=== PATIENT | male | born 1985 | race Caucasian/White ===

== ENCOUNTER → 2017-08-08 | Outpatient (CLI) | payer BC ==
[2017-08-08 16:57] LABS: HCT 44.8 % (39.0-53.0); HGB 14.8 gm/dL (13.0-17.5); MCH 28.6 pg (25.0-35.0); MCV 86.5 fL (80.0-100.0); Mean Platelet Volume 6.4; Platelet Count 302 k/uL (150-450); RBC 5.18 m/uL (4.30-5.90); RDW 12.9 % (11.5-15.5); WBC 9.4 k/uL (3.8-10.6)
[2017-08-08 17:08] LABS: ALT 76 U/L (21-72); AST 50 U/L (17-59); Albumin 4.5 g/dL (3.5-5.0); Alkaline Phosphatase 101 U/L (38-126); Anion Gap 13 mmol/L; Blood Urea Nitrogen 15 mg/dL (9-20); Calcium 9.5 mg/dL (8.4-10.2); Carbon Dioxide 28 mmol/L (22-30); Chloride 103 mmol/L (98-107); Glucose 87 mg/dL (74-99); Potassium 4.2 mmol/L (3.5-5.1); Sodium 144 mmol/L (137-145); Total Protein 7.4 g/dL (6.3-8.2)
== END | disposition home or self-care (01) ==
LOC: LABPAT 15:58
PROVIDERS: ATTEND Surgery Plastic and Reconstructive Surgery
DX: Z01.818 Encounter for other preprocedural examination (principal); K57.30 Diverticulosis of large intestine without perforation or abscess without bleeding
CPT/HCPCS: 36415; 80053; 85027; 93005

== ENCOUNTER 2017-08-12 05:25 | Inpatient (IN) | payer BC ==
[2017-08-03 08:56] VITALS: BMI 33.9
[~2017-08-12 05:25] MED LIST: HEPARIN SODIUM,PORCINE 5,000 UNIT/ML 1 ML VIAL SQ ONE; ceFAZolin IN SWFI 2 GM/20 ML SYRINGE IVP ONE; metroNIDAZOLE-NS PMX 500 MG in SALINE 1 100ML.BAG IVPB ONE
[2017-08-12] MEDS ORDERED: HYDROmorphone 0.5 MG/0.5 ML SYRINGE IVP PRN ×2 (05:36→13:23)
[2017-08-12] MEDS ORDERED: Antibiotics per Pharmacy 1 EACH MISC MISCELLANE PRN (05:36)
[2017-08-12] MEDS ORDERED: ACETAMINOPHEN TAB 500 MG TAB PO ONE (05:36)
[2017-08-12] MEDS ORDERED: ALVIMOPAN 12 MG CAPSULE PO ONE (05:36)
[2017-08-12] MEDS ORDERED: DEXAMETHASONE SOD PHOSPHATE 10 MG/ML 1 ML VIAL IV ONE (05:36)
[2017-08-12] MEDS ORDERED: MIDAZOLAM 2 MG/2 ML VIAL IV PRN (05:36)
[2017-08-12] MEDS ORDERED: ONDANSETRON 4 MG/2 ML VIAL IVP ONE (05:36)
[2017-08-12] MEDS: LACTATED RINGERS 1,000 ML IV SCH (06:10)
[2017-08-12] MEDS ORDERED: MIDAZOLAM 2 MG/2 ML VIAL IVP ONE (06:50)
[2017-08-12] MEDS ORDERED: fentaNYL (PF) 50 MCG/ML 2 ML AMP IVP ONE ×2 (06:55→07:03)
--- NOTE | 2017-08-12 07:04 | P.GSHP ---
History of Present Illness H&P Date: 08/12/17 CHIEF COMPLAINT: Diverticulitis. HISTORY OF PRESENT ILLNESS: Yosef Patel is a status post colonoscopy. He had a recent diverticulitis attack barely 3 months ago on April of 2017. He just completed his colonoscopy, actually demonstrated active and acute diverticulitis. He had been started on ciprofloxacin including Flagyl on the interim. He has a strong family history of diverticulitis in his grandfather and father, who had a colon resection. He now presents for further evaluation and management. In the past 3 months, he has changed his diet, including high fiber diet with increased in vegetables and fruits. PAST MEDICAL HISTORY: Please see list. PAST SURGICAL HISTORY: Please see list. MEDICATIONS: Please see list. ALLERGIES: Please see list. SOCIAL HISTORY: No illicit drug use FAMILY HISTORY: No reports of Crohn disease or ulcerative colitis. REVIEW OF ORGAN SYSTEMS: Additionally reports: GI: History of diverticulitis. History of colon polyp. CONSTITUTIONAL: No fevers or chills. HEENT: Denies any trouble with vision, hearing or nosebleeds. No difficulty swallowing. LYMPHATIC: The patient denies any lumps and bumps around the neck. ENDOCRINE: Denies any thyroid disorders. Denies any blood sugar glucose intolerance. RESPIRATORY: Denies pneumonia. Denies any troubles with breathing or dyspnea on exertion. CARDIOVASCULAR: Denies any chest pain, palpitations, or recent heart attacks. GENITOURINARY: Denies any blood in urine or increased urinary frequency. MUSCULOSKELETAL: Denies any back pain, stiffness or joint arthritis. NEUROLOGIC: Denies any numbness or tingling along the distal extremities. No seizure disorders or headaches. PSYCHIATRIC: Denies any depression or suicidal ideation. HEMATOLOGIC: Denies any abnormal bleeding or bruising. BREASTS: Denies any breast lumps, pain or nipple discharge. SKIN: No current skin cancer. No rash. PHYSICAL EXAM: Patient is a 32-year-old male. GENERAL: Well developed and in no acute distress. Pleasant. HEENT: No sclera icterus. Extraocular movements grossly intact. Moist buccal mucosa. Head is atraumatic, normocephalic. Hears conversational speech. No nasal drainage. NECK: Supple without lymphadenopathy. No JV distention. CHEST: Non-labored respirations and equal bilateral excursions. CARDIOVASCULAR: Regular rate and rhythm. Palpable 2+ radial pulses. ABDOMEN: Soft. Non-tender. Nondistended. MUSCULOSKELETAL: No clubbing, cyanosis or edema. NEUROLOGIC: No focal or lateralizing signs. PSYCH: Appropriate affect. Alert and oriented to person, place and time. SKIN: Well perfused. Good skin turgor. STUDIES: Colonoscopy results were identified and reviewed, and were consistent with active diverticulitis involving the sigmoid colon between 20-30 cm. Benign colon polyp was extract, however pathology is still pending. ASSESSMENT: 1. Sigmoid diverticulitis. 2. Family history of diverticulitis. 3. Obesity. PLAN: 1. I have gone over options, including medications in the interim with antibiotics. Alternatively, surgical interventions were described. A sigmoid colon resection was reviewed. 2. Laparoscopic verses robotic and open surgery was reviewed. Benefits of each technique were also described including risks. 3. Given the complexity of the surgery, surgery at a tertiary care center was described. He will need a EKG including blood work panel preoperatively. 4. DVT prophylaxis. 5. Antibiotics prophylaxis. 6. Inpatient hospitalization was anticipated for 2 nights. Past Medical History Additional Past Medical History / Comment(s): diverticulitis, History of Any Multi-Drug Resistant Organisms: None Reported Additional Past Surgical History / Comment(s): oral surgery, colonoscopy Past Anesthesia/Blood Transfusion Reactions: No Reported Reaction Smoking Status: Never smoker - Past Family History Mother Family Medical History: No Reported History Medications and Allergies Home Medications Medication Instructions Recorded Confirmed Type No Known Home Medications [No 08/03/17 08/03/17 History Known Home Medications] Allergies Allergy/AdvReac Type Severity Reaction Status Date / Time Sulfa (Sulfonamide Allergy Unknown Verified 08/03/17 08:50 Antibiotics) Childhood Surgical - Exam Vital Signs Temp Pulse Resp BP Pulse Ox 98.0 F 63 18 117/75 99 08/12/17 05:49 08/12/17 05:49 08/12/17 05:49 08/12/17 05:49 08/12/17 05:49
[2017-08-12] MEDS ORDERED: NALOXONE 0.4 MG/ML 1 ML VIAL IV PRN (07:06)
[2017-08-12] MEDS ORDERED: ROCURONIUM BROMIDE 10 MG/ML 10 ML VIAL IV ONE (07:09)
[2017-08-12] MEDS ORDERED: MIDAZOLAM 2 MG/2 ML VIAL ONE (07:09)
[2017-08-12] MEDS ORDERED: PROPOFOL 10 MG/ML 20 ML VIAL IV ONE (07:09)
[2017-08-12] MEDS ORDERED: LIDOCAINE 1% INJ 10MG/ML (20 ML MDV) ONE (07:09)
[2017-08-12] MEDS ORDERED: HYDROmorphone (PF) 1 MG/ML ONE (07:09)
[2017-08-12] MEDS ORDERED: NALOXONE 0.4 MG/ML 1 ML VIAL ONE (07:09)
[2017-08-12] MEDS ORDERED: SUCCINYLCHOLINE CHLORIDE 100 MG/5 ML SYR IV ONE (07:09)
[2017-08-12] MEDS ORDERED: fentaNYL (PF) 50 MCG/ML 2 ML AMP ONE (07:09)
[2017-08-12] MEDS ORDERED: GLYCOPYRROLATE 0.2 MG/ML 2 ML VIAL ONE (07:09)
[2017-08-12] MEDS ORDERED: NEOSTIGMINE 1 MG/ML 10 ML VIAL ONE (07:09)
[2017-08-12] MEDS ORDERED: LACTATED RINGERS 1,000 ML IV ONE ×5 (07:15→11:33)
[2017-08-12] MEDS ORDERED: BUPIVACAINE (PF) 0.25% 30 ML VIAL SQ ONE ×2 (08:09)
[2017-08-12] MEDS: BUPIVACAINE (PF) 0.5% 31.3 ML, HYDROMORPHONE (PF) 5 MG in SODIUM CHLORIDE 0.9% 218 ML EPIDURAL PRN ×2 (13:04→14:14)
[2017-08-12] MEDS ORDERED: ONDANSETRON 4 MG/2 ML VIAL IVP PRN (13:23)
[2017-08-12] MEDS: METOCLOPRAMIDE 5 MG/ML 2 ML VIAL IVP SCH (17:08)
[2017-08-12] MEDS: D5-0.45% NACL WITH KCL 20MEQ/L 1,000 ML IV SCH (20:26)
[2017-08-13] MEDS: D5-0.45% NACL WITH KCL 20MEQ/L 1,000 ML IV SCH ×2 (00:37→05:36)
[2017-08-13] MEDS: METOCLOPRAMIDE 5 MG/ML 2 ML VIAL IVP SCH ×4 (00:38→20:13)
[2017-08-13] MEDS: ALVIMOPAN 12 MG CAPSULE PO SCH ×2 (09:25→20:11)
--- NOTE | 2017-08-13 11:17 | P.PN ---
Progress Note - Text Progress Note Date: 08/12/17 Patient seen and evaluated. His pain is well controlled. No complaints. Care plan reviewed including potential removal of epidural in the morning and discontinue Estevez in the morning. Continue with antibiotics per protocol. Disposition pending flatus.
[2017-08-13 12:24] LABS: Basophils % (A) 0 %; Eosinophils # (A) 0.1 k/uL (0-0.7); Eosinophils % (A) 0 %; HCT 42.3 % (39.0-53.0); HGB 14.3 gm/dL (13.0-17.5); Lymphocytes # (A) 2.5 k/uL (1.0-4.8); Lymphocytes % (A) 20 %; MCH 28.8 pg (25.0-35.0); MCHC 33.8 g/dL (31.0-37.0); Mean Platelet Volume 6.4; Monocytes # (A) 0.7 k/uL (0-1.0); Monocytes % (A) 5 %; Neutrophils # (A) 9.3 k/uL (1.3-7.7); Neutrophils % (A) 73 %; Platelet Count 269 k/uL (150-450); RBC 4.97 m/uL (4.30-5.90); RDW 12.7 % (11.5-15.5); WBC 12.7 k/uL (3.8-10.6)
[2017-08-13 12:32] LABS: ALT 51 U/L (21-72); AST 81 U/L (17-59); Albumin 3.6 g/dL (3.5-5.0); Alkaline Phosphatase 77 U/L (38-126); Anion Gap 10 mmol/L; Blood Urea Nitrogen 12 mg/dL (9-20); Carbon Dioxide 30 mmol/L (22-30); Chloride 100 mmol/L (98-107); Glucose 119 mg/dL (74-99); Phosphorus 2.3 mg/dL (2.5-4.5); Potassium 3.5 mmol/L (3.5-5.1); Sodium 140 mmol/L (137-145); Total Bilirubin 1.8 mg/dL (0.2-1.3); Total Protein 6.2 g/dL (6.3-8.2)
[2017-08-13] MEDS ORDERED: SODIUM CHLORIDE 0.9% 2,000 ML IV ONE (14:31)
[2017-08-13] MEDS ORDERED: HYDROcodone/APAP 5-325MG 1 EACH TAB PO PRN (15:03)
--- NOTE | 2017-08-13 15:32 | P.PN ---
Progress Note - Text 08/13 9360 32 ye old male s/p robotic assisted lap sigmoid colectomy. pt has a vas of 1 at rest,no motor or sensory deficit. epidural d/sheryl .
[2017-08-13] MEDS: LEVOFLOXACIN 500MG-D5W PMX 500 MG in DEXTROSE/WATER 1 100ML.BAG IVPB SCH (17:22)
[2017-08-13] MEDS ORDERED: ACETAMINOPHEN IV (For NPO) 1,000 MG in EMPTY BAG 1 BAG IVPB PRN (18:32)
[2017-08-13] MEDS: MAGNESIUM SULFATE-D5W PMX 1 GM in DEXTROSE/WATER 1 100ML.BAG IVPB SCH ×2 (18:39→20:17)
[2017-08-13] MEDS: METOPROLOL TARTRATE 25 MG TAB PO SCH (20:11)
[2017-08-13] MEDS: SODIUM PHOSPHATE 10 MMOL in SODIUM CHLORIDE 0.9% 250 ML IVPB SCH ×2 (21:22→23:34)
[2017-08-14] MEDS: METOCLOPRAMIDE 5 MG/ML 2 ML VIAL IVP SCH ×2 (01:15→06:13)
[2017-08-14] MEDS: SODIUM PHOSPHATE 10 MMOL in SODIUM CHLORIDE 0.9% 250 ML IVPB SCH (01:40)
[2017-08-14] MEDS: D5-0.45% NACL WITH KCL 20MEQ/L 1,000 ML IV SCH ×3 (01:42→06:12)
[2017-08-14] MEDS: ACETAMINOPHEN IV (For NPO) 1,000 MG in EMPTY BAG 1 BAG IVPB SCH ×2 (01:43→06:11)
[2017-08-14] MEDS: LACTATED RINGERS 1,000 ML IV SCH (03:59)
[2017-08-14 07:12] LABS: Basophils # (A) 0.1 k/uL (0-0.2); Basophils % (A) 1 %; Eosinophils # (A) 0.1 k/uL (0-0.7); Eosinophils % (A) 1 %; HCT 39.6 % (39.0-53.0); HGB 13.4 gm/dL (13.0-17.5); Lymphocytes # (A) 2.2 k/uL (1.0-4.8); Lymphocytes % (A) 22 %; MCH 28.6 pg (25.0-35.0); MCHC 33.9 g/dL (31.0-37.0); MCV 84.4 fL (80.0-100.0); Mean Platelet Volume 6.5; Monocytes # (A) 0.7 k/uL (0-1.0); Monocytes % (A) 7 %; Neutrophils # (A) 6.9 k/uL (1.3-7.7); Neutrophils % (A) 68 %; Platelet Count 244 k/uL (150-450); RDW 12.5 % (11.5-15.5); WBC 10.1 k/uL (3.8-10.6)
[2017-08-14 07:25] LABS: ALT 47 U/L (21-72); AST 72 U/L (17-59); Albumin 3.4 g/dL (3.5-5.0); Alkaline Phosphatase 76 U/L (38-126); Anion Gap 10 mmol/L; Blood Urea Nitrogen 8 mg/dL (9-20); Calcium 8.8 mg/dL (8.4-10.2); Carbon Dioxide 28 mmol/L (22-30); Chloride 102 mmol/L (98-107); Glucose 108 mg/dL (74-99); Phosphorus 2.9 mg/dL (2.5-4.5); Potassium 3.6 mmol/L (3.5-5.1); Sodium 140 mmol/L (137-145); Total Bilirubin 2.3 mg/dL (0.2-1.3); Total Protein 5.9 g/dL (6.3-8.2)
[2017-08-14] MEDS ORDERED: METOPROLOL TARTRATE 25 MG TAB PO SCH (09:00)
[2017-08-14] MEDS: LEVOFLOXACIN 500MG-D5W PMX 500 MG in DEXTROSE/WATER 1 100ML.BAG IVPB SCH (09:03)
[2017-08-14] MEDS: METOPROLOL TARTRATE 25 MG TAB PO SCH (09:03)
[2017-08-14] MEDS: ALVIMOPAN 12 MG CAPSULE PO SCH (09:03)
[2017-08-14 10:06] VITALS: BP 125/81; PULSE 82; RESP 16; TEMP 98.3
[2017-08-14 12:35] LABS: Bilirubin, Delta 0.4 mg/dL (0.0-0.2); Bilirubin,Unconjugated 1.7 mg/dL (0.0-1.1); Total Bilirubin 2.1 mg/dL (0.2-1.3)
--- NOTE | 2017-08-14 12:58 | P.PN ---
Subjective Progress Note Date: 08/14/17 Patient is a 32-year-old gentleman status post robotic-assisted sigmoid resection. He is POD#1 "I feel great.". Pain is well-controlled. He is passing flatus and had bowel movements without blood. His is at bedside. Objective - Vital Signs Vital signs: Vital Signs Temp 98.3 F 08/14/17 07:00 Pulse 82 08/14/17 07:00 Resp 16 08/14/17 07:00 BP 125/81 08/14/17 07:00 Pulse Ox 95 08/14/17 07:00 Intake & Output 08/13/17 08/14/17 08/14/17 18:59 06:59 18:59 Intake Total 1927 2229 350 Output Total 3550 Balance -1623 2229 350 Intake: Intake, IV Titration 1000 1209 Amount ACETAMINOPHEN IV (For NPO 100 ) 1,000 mg In Empty Bag 1 bag @ 400 mls/hr IVPB Q6HR MATTHEW Rx#:[id number] D5-0.45% NaCl with KCl 1000 309 20Meq/l 1,000 ml @ 125 mls/hr IV .Q8H MATTHEW Rx#: [id number] Magnesium Sulfate-D5w Pmx 300 1 gm In Dextrose/Water 1 100ml.bag @ 100 mls/hr IVPB Q1H MATTHEW Rx#: [id number] Sodium Phosphate 10 mmol 500 In Sodium Chloride 0.9% 250 ml @ 125 mls/hr IVPB Q2H MATTHEW Rx#:[id number] Oral 927 1020 350 Output: Urine 3550 Uretheral (Estevez) 1700 Other: Voiding Method Indwelling Catheter Toilet # Voids 1 5 # Bowel Movements 3 - Exam GENERAL: Well developed and in no acute distress. Pleasant. HEENT: No sclera icterus. Extraocular movements grossly intact. Moist buccal mucosa. Head is atraumatic, normocephalic. Hears conversational speech. No nasal drainage. NECK: Supple without lymphadenopathy. No JV distention. CHEST: Non-labored respirations and equal bilateral excursions. CARDIOVASCULAR: Regular rate and rhythm. Palpable 2+ radial pulses. ABDOMEN: Soft, nontender. Nondistended. Dressing is clean dry and intact. No cellulitis. MUSCULOSKELETAL: No clubbing, cyanosis or edema. NEUROLOGIC: No focal or lateralizing signs. PSYCH: Appropriate affect. Alert and oriented to person, place and time. SKIN: Good skin turgor. Well perfused. - Labs CBC & Chem 7: 08/14/17 06:28 08/14/17 06:28 Labs: Abnormal Lab Results - Last 24 Hours (Table) 08/14/17 08/14/17 Range/Units 06:28 06:28 BUN 8 L (9-20) mg/dL Glucose 108 H (74-99) mg/dL Total Bilirubin 2.3 H 2.1 H (0.2-1.3) mg/dL Unconjugated Bilirubin 1.7 H (0.0-1.1) mg/dL Delta Bilirubin 0.4 H (0.0-0.2) mg/dL AST 72 H (17-59) U/L Total Protein 5.9 L (6.3-8.2) g/dL Albumin 3.4 L (3.5-5.0) g/dL Assessment and Plan (1) Diverticulitis of sigmoid colon Current Visit: Yes Status: Acute Code(s): K57.32 - DVTRCLI OF LG INT W/O PERFORATION OR ABSCESS W/O BLEEDING SNOMED Code(s): 395265472 (2) Obesity (BMI 30.0-34.9) Current Visit: Yes Status: Acute Code(s): E66.9 - OBESITY, UNSPECIFIED SNOMED Code(s): 620736261 (3) Gilbert syndrome Current Visit: Yes Status: Acute Code(s): E80.4 - GILBERT SYNDROME SNOMED Code(s): 55925375 Plan: 1. Fractionation of his total bilirubin has been obtained to evaluate for Gilbert syndrome. 2. Otherwise, patient is clinically doing extremely well. 3. Anticipate discharge home with follow-up in the office 48-72 hours. 4. Discharge diet also reviewed including full liquids with high protein shakes.
--- NOTE | 2017-08-14 13:05 | P.DS ---
Providers Date of admission: 08/12/17 05:25 Expected date of discharge: 08/14/17 Attending physician: Rocio Brand Primary care physician: Yessica Huggins - Discharge Diagnosis(es) (1) Diverticulitis of sigmoid colon Current Visit: Yes Status: Acute (2) Obesity (BMI 30.0-34.9) Current Visit: Yes Status: Acute (3) Gilbert syndrome Current Visit: Yes Status: Acute Hospital Course: The patient is a 32-year-old male who presents with history of chronic diverticulitis. He underwent robotic-assisted sigmoid resection. Postprocedure , he was maintained on the enhance colon recovery program for which he did extremely well. No reports of nausea or vomiting. He was tolerating diet. Prior to discharge, is passing flatus and having bowel movements without blood. Diagnostic studies confirmed Gilbert syndrome. Procedures: Robotic assisted sigmoid colectomy. Patient Condition at Discharge: Good Plan - Discharge Summary Discharge Rx Participant: Yes New Discharge Prescriptions: New HYDROcodone/APAP 5-325MG [[place] 5-325] 1 tab PO Q6HR PRN #30 tab PRN Reason: Pain Discharge Medication List HYDROcodone/APAP 5-325MG [[place] 5-325] 1 tab PO Q6HR PRN #30 tab 08/13/17 [Rx] Follow up Appointment(s)/Referral(s): Rocio Brand MD [STAFF PHYSICIAN] - 08/16/17 (Please call to confirm time) Patient Instructions/Handouts: Colectomy (GEN), Abdominal Binder (GEN) Activity/Diet/Wound Care/Special Instructions: No lifting over 4 pounds in 4 weeks. High-protein shakes at least 20-30 g per serving, 2-3 times daily. May have liquid diet. Please notify your surgeon for increased abdominal pain, nausea or vomiting, or blood in stools. Discharge Disposition: HOME SELF-CARE
--- NOTE | 2017-08-29 06:18 | P.OP ---
Date of Procedure: 08/12/17 Description of Procedure: SURGEON: LEENA LUCAS MD ASSISTANTS: 1. BRUNILDA MASSEY 2. LASHONDA KELLEY PREOPERATIVE DIAGNOSES: 1. History of recurrent sigmoid diverticulitis 2. Obesity due to excess calories. 3. Body mass index 33.9. 4. Family history of diverticulitis. POSTOPERATIVE DIAGNOSES: 1. History of recurrent sigmoid diverticulitis 2. Obesity due to excess calories. 3. Body mass index 33.9. 4. Family history of diverticulitis. OPERATION: 1. Robotic-assisted daVinci Xi laparoscopic sigmoid colectomy with low anterior resection 2. Extensive robotic-assisted laparoscopic lysis of adhesions over 3-1/2 hours. 3. Intraoperative sigmoidoscopy Anesthesia: GETA, local, epidural ESTIMATED BLOOD LOSS: 100 mL SPECIMENS REMOVED: Sigmoid colon, anastomotic donuts COMPLICATIONS: None. Condition: stable Disposition: floor FINDINGS: 1. Dense adhesions along the left pelvis from recurrent chronic and acute diverticulitis requiring over 3-1/2 hours lysing adhesions 2. Linear isoperistaltic colorectal anastomosis. 3. Colon resection removed via 4 cm incision, left upper quadrant. 4. Robotic arms using multiport 5. All ports place 15 cm away from target anatomy, the sigmoid colon. 6. Oversew of colorectal anastomosis with negative leak with test. 7. Completely hemostatic procedure upon completion. INDICATIONS: The patient is a 33-year-old male with personal history of sigmoid diverticulitis, recurrent. Despite oral treatment, he continued to have intermittent left lower quadrant pain. Diagnostic studies including colonoscopy was consistent with recurrent diverticulitis of the sigmoid colon. Additionally, he has family history of diverticulitis. Benefits and risks, including infection, bowel injury, ureteral injury, colostomy creation and possibility for additional surgery was discussed at length. Informed consent was obtained. All questions of the patient and family were answered. DESCRIPTION: Earlier the patient had undergone a bowel prep using the enhanced colon recovery program. The patient was transferred to the operating room onto a split leg table and repositioned to modified lithotomy following intubation. A Estevez catheter was placed. The abdomen was then prepped and draped in standard sterile fashion as Ioban was placed along the abdomen to minimize any contamination of skin estephanie. After a timeout protocol was performed, attention was then brought to the left upper quadrant whereby a 0 degree 5 mm laparoscopic trocar entry was performed. The abdominal cavity was entered and insufflated to 15 mmHg pressure, which he tolerated well. Diagnostic laparoscopy confirmed acute inflammation along the left pelvis from diverticulitis. Next a robotic 8-mm trocar was placed along the right lower quadrant. A 12-mm mm port was placed along the right upper quadrant. At the epigastrium, an 8 mm trocar was placed for camera port. Ports were placed 10 to 13 cm apart from each other including 15-20 cm away from the target anatomy of the left pelvis. The 5-mm port was exchanged for a 12 mm robotic port. The patient was then placed in Trendelenburg position, at least 14. The robotic da Kristi XI system was primed. The robot was docked from the left side of the patient. Instruments were interchanged by the construction project assistant including scissors, needle otr hazmat company driver, robotic stapler and vessel sealer. Next, attention was brought to the descending colon. The descending colon was mobilized along the white line of Toldt using vessel sealer and scissors with cautery. The sigmoid colon was moderately redundant. Active inflammation and adhesions were found along the left colon consistent with acute and chronic diverticulitis. Care was taken to avoid any injury to the ureter upon dissection. The colon was marked along the area of inflammation using a suture for planned resection. To address the left pelvic adhesions, combination of blunt including sharp dissection was performed using a scissor with electrobovie cautery. Extensive and careful dissection was performed without injury to the bladder including careful avoidance of injury to the left ureter along its anatomical planes. Extensive lysis of adhesions occurred well over 3.5 hours as described. A stay suture using 2-0 vicryl was placed along the anterior serosa of the descending colon including along the sigmoid colon. The sigmoid mesentery was mobilized using a vessel sealer whereby the distal sigmoid colon was marked and tagged. Using multiple fires of the robot stapler 45 mm green/blue loads, the descending colon was divided. Mobilization of the sigmoid colon was performed to the sacral promontory. Next, the sigmoid colon was divided using multiple fires of the robotic stapler 45 mm green/blue load. The sigmoid mesentery was moderately bulky and dense secondary to severe and recurrent inflammation. The proximal and distal colon was brought in an isoperistaltic fashion after placing interrupted sutures along the proposed michael-lumen using 2-0 Vicryl. Along the tinea coli of the proximal including distal limbs, a colotomy was prepared along both limbs. Next, a 45 mm blue stapler was fired to create the michael-lumen. The colotomy of the michael-lumen was reapproximated using 2-0 Vicryl followed by 2 firings of a 45 mm blue load. Closure of the michael-lumen was completed using intracorporeal interrupted 2-0 Vicryl followed by second layer of interrupted 2-0 silk in Lembert fashion from 1:00 to 6 oclock position of the right sidewall of the anastomosis. I then went to the foot of the bed to perform an intraoperative flexible sigmoidoscopy using an Olympus colonoscope. With the help of the construction project assistant, the anastomosis and pelvis was submerged in normal saline. No leaks were found and the anastomosis was completely hemostatic and viable. The robot was undocked. I re-scrubbed into the case. Final hemostasis was checked prior to removal of the specimen. Endoscopic imaging was confirmed of the anastomosis including a dry pelvis. Via the stapler site at the left upper quadrant, the resected colon was brought out through the 12 mm trocar site after widening the skin incision to 4-cm. An Endo Catch bag including Zacarias wound protector was placed for retrieval of the specimen. The fascial defect was oversewn using 0 Vicryl and a Hammad Bonilla. All incisions were copiously irrigated using dilute normal saline and hydrogen peroxide mixture. Next all pneumoperitoneum was evacuated from the abdominal cavity. The trocar sites were reapproximated using 4-0 Monocryl in an interrupted subcuticular fashion. At the left upper quadrant, interrupted 3-0 Vicryl was placed along the subcutaneous tissue. Local anesthetic was infiltrated to all wounds for postop analgesia. All incisions were also cleansed with diluted hydrogen peroxide. An Optifoam surgical dressing was placed over the colon extraction site. Dermabond was applied to the rest of the skin incisions. The patient was extubated successfully. Intraoperative photos were reviewed with the patient's family who were overall pleased with the level of care. The patient was transferred to the postanesthesia care unit in stable condition.
--- NOTE | 2017-08-29 06:22 | P.PN ---
Subjective Progress Note Date: 08/13/17 Patient is a 32-year-old gentleman status post robotic-assisted sigmoid resection. He is POD#1. No reports of nausea and vomiting. His pain is well- controlled. He is ambulating. No passage of flatus. Objective - Vital Signs Vital signs: Vital Signs Temp 100 F H 08/13/17 14:36 Pulse 117 H 08/13/17 14:36 Resp 16 08/13/17 14:36 BP 119/75 08/13/17 14:36 Pulse Ox 94 L 08/13/17 14:36 Intake & Output 08/12/17 08/13/17 08/13/17 18:59 06:59 18:59 Intake Total 3956 677 Output Total 340 2940 1700 Balance 3616 -2940 -1023 Weight 113.398 kg 113.398 kg Intake: IV 3956 Oral 0 677 Output: Urine 240 2940 1700 Estimated Blood Loss 100 Other: Voiding Method Indwelling Catheter Indwelling Catheter Indwelling Catheter # Voids 2 - Exam GENERAL: Well developed and in no acute distress. Pleasant. HEENT: No sclera icterus. Extraocular movements grossly intact. Moist buccal mucosa. Head is atraumatic, normocephalic. Hears conversational speech. No nasal drainage. NECK: Supple without lymphadenopathy. No JV distention. CHEST: Non-labored respirations and equal bilateral excursions. CARDIOVASCULAR: Tachycardic. Palpable 2+ radial pulses. ABDOMEN: Soft, nontender. Nondistended. Dressing is clean dry and intact. No cellulitis. MUSCULOSKELETAL: No clubbing, cyanosis or edema. NEUROLOGIC: No focal or lateralizing signs. PSYCH: Appropriate affect. Alert and oriented to person, place and time. SKIN: Good skin turgor. Well perfused. - Labs CBC & Chem 7: 08/14/17 06:28 08/14/17 06:28 Labs: Abnormal Lab Results - Last 24 Hours (Table) 08/13/17 08/13/17 Range/Units 11:51 11:51 WBC 12.7 H (3.8-10.6) k/uL Neutrophils # 9.3 H (1.3-7.7) k/uL Glucose 119 H (74-99) mg/dL Phosphorus 2.3 L (2.5-4.5) mg/dL Total Bilirubin 1.8 H (0.2-1.3) mg/dL AST 81 H (17-59) U/L Total Protein 6.2 L (6.3-8.2) g/dL Assessment and Plan (1) Diverticulitis of sigmoid colon Status: Acute Code(s): K57.32 - DVTRCLI OF LG INT W/O PERFORATION OR ABSCESS W /O BLEEDING SNOMED Code(s): 220044465 (2) Obesity (BMI 30.0-34.9) Status: Acute Code(s): E66.9 - OBESITY, UNSPECIFIED SNOMED Code(s): 120240425 Plan: 1. Although he remains clinically stable, he does have tachycardia. We'll monitor IV fluids. 2. Start a beta sylwia should heart rate continue in 110s. 3. Removal of epidural 24 hours. 4. Await flatus.
== END 2017-08-14 14:29 | disposition home or self-care (01) | DRG 331 ==
LOC: 2ORWHC 05:25 → 3SUR 12:48
PROVIDERS: ADMIT Surgery Plastic and Reconstructive Surgery; ATTEND Surgery Plastic and Reconstructive Surgery
PROC: 0DNG4ZZ Release Left Large Intestine, Percutaneous Endoscopic Approach (ICD-10-PCS; 2017-08-12)
PROC: 8E0W4CZ Robotic Assisted Procedure of Trunk Region, Percutaneous Endoscopic Approach (ICD-10-PCS; 2017-08-12)
PROC: 0DJD8ZZ Inspection of Lower Intestinal Tract, Via Natural or Artificial Opening Endoscopic (ICD-10-PCS; 2017-08-12)
PROC: 0DBN4ZZ Excision of Sigmoid Colon, Percutaneous Endoscopic Approach (ICD-10-PCS; principal; 2017-08-12 07:00)
DX: K57.32 Diverticulitis of large intestine without perforation or abscess without bleeding (principal); E66.09 Other obesity due to excess calories; E80.4 Gilbert syndrome; Z68.33 Body mass index [BMI] 33.0-33.9, adult; Z90.49 Acquired absence of other specified parts of digestive tract; Z86.010 Personal history of colon polyps; Z88.2 Allergy status to sulfonamides
CPT/HCPCS: 80053; 82248; 83735; 84100; 85025; 86850; 86900; 86901; 88307